=== PATIENT | female | born 1955 | race Caucasian/White ===

== ENCOUNTER 2021-10-19 09:50 | Emergency (ER) | payer OTHER, SELFPAY ==
--- NOTE | ~2021-10-19 | XR_ITS ---
EXAMINATION: XR chest 2V DATE: 10/19/2021 10:06 INDICATION: Cough and shortness of breath TECHNIQUE: Frontal and lateral views of the chest are obtained COMPARISON: None available FINDINGS: The lungs are free of acute opacities. There is no pleural effusion or pneumothorax. The ca rdiomediastinal silhouette is normal. There is mild thoracic spondylosis. IMPRESSION: 1. No acute cardiopulmonary abnormality. Reviewed, dictated and finalized at location B.
[2021-10-19 09:59] VITALS: BP 158/69; PULSE 90; RESP 18; TEMP 36.1; O2SAT 97
--- NOTE | 2021-10-19 10:15 | ED.GENADULT ---
HPI - General Adult General Chief complaint: Unspecified Stated complaint: COPD Time Seen by Provider: 10/19/21 10:15 Source: patient Mode of arrival: ambulatory Limitations: no limitations History of Present Illness HPI narrative: Mckenna Arellano is a 66 yo female with a PMH of HTN, COPD, who [facility] with increased coughing and difficulty sleeping because of the coughing she states that she has been using her albuterol on inhaler regularly and taking her blood pressure medication she sees her doctor every 6 months for her COPD Related Data Allergies Allergy/AdvReac Type Severity Reaction Status Date / Time Sulfa (Sulfonamide Allergy Unknown unknown Verified 06/27/21 15:27 Antibiotics) levofloxacin Allergy NAUSEA/VOMI Verified 06/27/21 15:27 TING Review of Systems Review of Systems: CONSTITUTIONAL: Denies fever, chills, sweats. EYES: Denies visual changes, redness, discharge. ENT: Denies rhinorrhea, has congestion, sore throat, otalgia. CARDIOVASCULAR: Denies chest pain, palpitations, edema. RESPIRATORY: Denies dyspnea, has wheezing, has cough GASTROINTESTINAL: Denies abdominal pain, nausea, vomiting, diarrhea. GENITOURINARY: Denies dysuria, hematuria, abnormal discharge SKIN: Denies rash or itching. NEUROLOGIC: Denies numbness, or focal weakness. PSYCHIATRIC: Denies anxiety or depression. PMFSH Past Medical History Medical History COPD (chronic obstructive pulmonary disease) Facial contusion Hypertension Nasal bone fracture Vitamin D deficiency disease Family History Family History Father Family history of lung cancer, Onset Age: 69 Social History Social History Smoking status: Current every day smoker Comments At time of signature, I agree with nursing past medical, surgical, social and family history. There is no relevant family history pertinent to the presenting complaint. Exam Narrative: GENERAL: This is a well-nourished, well-developed patient, in mild distress. HEAD: normocephalic, atraumatic. EYES: Sclera clear/white. Vision is grossly intact. EARS: External ears normal. Hearing grossly intact. NOSE: External nose normal without nasal discharge, nares without redness, mild rhinorrhea. THROAT: Mucous membranes moist, posterior pharynx mild erythema with clear drainage patient's oral mucosa reflects smoking active NECK: Neck supple, non-tender CARDIOVASCULAR: Regular rate and rhythm without murmurs, gallops, or rubs. RESPIRATORY: Diminished to auscultation. Breath sounds equal bilaterally. Lower bibasilar wheezes, rales, or rhonchi. GASTROINTESTINAL: Abdomen soft, SKIN: warm, intact with no suspicious lesions or rash, good texture and turgor. NEURO: awake, alert, and oriented to person, place and time. There were no obvious focal neurologic abnormalities. Steady gait EXTREMITIES: Normal range of motion. BACK: Nontender without deformity Course Course Emergency Course: Patient comes to [facility] with complaints of increased coughing and difficulty sleeping because of the cough due to her COPD X-ray is negative no acute cardiopulmonary process Started on prednisone 50 mg x 5 days, Tessalon Perles, refill on albuterol nebulizer solution Discussed trying to stop smoking and to continue using Claritin for nasal congestion Level of Care: [facility] Vital Signs Vital signs: Vital Signs Temperature 97.0 F L 10/19/21 09:59 Pulse Rate 90 10/19/21 09:59 Respiratory Rate 18 10/19/21 09:59 Blood Pressure 158/69 H 10/19/21 09:59 Pulse Oximetry 97 10/19/21 09:59 Temperature 97.0 F L 10/19/21 09:59 Pulse Rate 90 10/19/21 09:59 Respiratory Rate 18 10/19/21 09:59 Blood Pressure 158/69 H 10/19/21 09:59 Pulse Oximetry 97 10/19/21 09:59 Medical Decision Making Diffe
== END 2021-10-19 10:36 | disposition home or self-care (01) ==
PROVIDERS: Emergency Provider Nurse Practitioner; PCP Emergency Medicine
DX: J44.1 Chronic obstructive pulmonary disease with (acute) exacerbation (principal); I10 Essential (primary) hypertension; F17.200 Nicotine dependence, unspecified, uncomplicated
CPT/HCPCS: 71046; 99213; G0463

== ENCOUNTER 2023-05-26 11:34 | Emergency (ER) | payer OTHER, MEDICARE, SELFPAY ==
[2023-05-26 11:51] VITALS: BP 119/71; PULSE 106; RESP 18; TEMP 38.6; O2SAT 94
--- NOTE | 2023-05-26 11:57 | ED.URI ---
HPI - URI/Sore Throat General Chief Complaint: Upper Respiratory Infection Stated Complaint: fever,cough,chills Source: patient and RN notes reviewed Mode of arrival: ambulatory Limitations: no limitations History of Present Illness HPI Narrative: 67-year-old female presents with concern for 3 day history of cough, fevers, headache. She reports shortness of breath with coughing. Reports she has COPD and she last used her albuterol inhaler this morning. She reports she was around an ill co-worker MD elicited complaint: fever and cough Related Data Allergies Allergy/AdvReac Type Severity Reaction Status Date / Time Sulfa (Sulfonamide Allergy Unknown unknown Verified 05/26/23 12:01 Antibiotics) levofloxacin Allergy NAUSEA/VOMI Verified 05/26/23 12:01 TING Review of Systems Review of Systems: CONSTITUTIONAL: Reports malaise, chills, sweats, fever. EYES: Denies visual changes, redness, or discharge. ENT: Reports rhinorrhea, congestion. Denies sinus pain, otalgia and sore throat. CARDIOVASCULAR: Denies chest pain, palpitations, or edema. RESPIRATORY: Reports cough, dyspnea. GASTROINTESTINAL: Denies abdominal pain, nausea, vomiting, diarrhea SKIN: Denies rash or itching. MUSCULOSKELETAL: Reports myalgia. NEUROLOGIC: Reports headache. All systems reviewed & are unremarkable except as noted in HPI and below PMFSH Past Medical History Medical History COPD (chronic obstructive pulmonary disease) Facial contusion Hypertension Nasal bone fracture Vitamin D deficiency disease Family History Family History Father Family history of lung cancer, Onset Age: 69 Social History Social History (Updated 12/25/22 @ 15:19 by Jacklyn Suarez MA) Smoking status: Current every day smoker Alcohol intake: current Alcohol use details: wine or beer Lack of Transportation: No Lack of Food: Never True Current Housing: I Have Housing Concerned About Future Housing: No Difficulty Paying Gas/Electric Bills: No Difficulty Paying for Meds: No Currently Unemployed: No Education: Trade/Vocational Certificate Difficulty w/ Childcare or Family Care: No Comments At time of signature, agree with nursing past medical, surgical, social and family history. There is no relevant family history pertinent to the presenting complaint Exam Narrative: GENERAL: Nontoxic-appearing, well-nourished, and in no acute distress. HEAD: Normocephalic EYES: PERRLA, conjunctivae clear ENT: Nares clear. Mucous membranes moist. TM pearly pratt with dull light reflex bilaterally; no tragal tenderness. NECK: Supple. No lymphadenopathy CHEST: Clear to auscultation, breath sounds equal. No wheezing, rhonchi, rales, or stridor. No respiratory distress, speaks in full sentences. Cough noted HEART: Regular rate and rhythm. No murmur heard. SKIN: Warm, dry, no rash. NEURO: Alert and oriented x3. PSYCH: Normal mood and affect Course Course Emergency Course: Patient is aware of diagnosis, understands and agrees to treatment plan. Anticipatory guidance given. Patient agrees to follow-up as directed and is aware of reasons to seek care at the emergency department. Portions of this record may have been created with voice recognition software Level of Care: [facility] Visit Vital Signs Vital signs: Vital Signs Temperature 101.4 F H 05/26/23 11:51 Pulse Rate 106 H 05/26/23 11:51 Respiratory Rate 18 05/26/23 11:51 Blood Pressure 119/71 05/26/23 11:51 Pulse Oximetry 94 05/26/23 11:51 Oxygen Delivery Room Air 05/26/23 11:51 Temperature 101.4 F H 05/26/23 11:51 Pulse Rate 106 H 05/26/23 11:51 Respiratory Rate 18 05/26/23 11:51 Blood Pressure 119/71 05/26/23 11:51 Pulse Oximetry 94 05/26/23 11:51 Oxygen Delivery Room Air 05/26/23 11:51 Reviewed. MDM - UR
== END 2023-05-26 12:50 | disposition home or self-care (01) ==
PROVIDERS: Emergency Provider Nurse Practitioner; PCP Emergency Medicine
DX: J10.1 Influenza due to other identified influenza virus with other respiratory manifestations (principal); Z20.822 Contact with and (suspected) exposure to COVID-19; F17.200 Nicotine dependence, unspecified, uncomplicated; J44.9 Chronic obstructive pulmonary disease, unspecified; I10 Essential (primary) hypertension
CPT/HCPCS: 87426; 87804; 99213; C9803; G0463

== ENCOUNTER 2023-06-04 14:20 | Emergency (ER) | payer OTHER, MEDICARE, SELFPAY ==
[2023-06-04 14:34] VITALS: BP 116/57; PULSE 102; RESP 16; TEMP 37.6; O2SAT 94
--- NOTE | 2023-06-04 14:54 | ED.URI ---
HPI - URI/Sore Throat General Chief Complaint: Upper Respiratory Infection Stated Complaint: cough Time Seen by Provider: 06/04/23 14:40 Source: patient Mode of arrival: ambulatory Limitations: no limitations History of Present Illness HPI Narrative: Mckenna is a 67-year-old female patient presenting to the clinic today with complaints of cough, sinus pressure, headache, and overall not feeling well. She was diagnosed with influenza a on the . She reports that she was initially feeling better for a few days but got sick again. Denies any known fever or chills. Has history of COPD. Reports a productive cough with yellow phlegm. Thinks she may have a sinus infection. Denies any increase in shortness of breath. MD elicited complaint: cough, rhinorrhea, nasal congestion and sinus pain Related Data Allergies Allergy/AdvReac Type Severity Reaction Status Date / Time Sulfa (Sulfonamide Allergy Unknown unknown Verified 05/26/23 12:01 Antibiotics) levofloxacin Allergy NAUSEA/VOMI Verified 05/26/23 12:01 TING Review of Systems Review of Systems: Pertinent positives per HPI. Patient denies any fever, chills, rash, visual changes, dizziness, shortness of breath, chest pain, palpitations, nausea, vomiting, diarrhea, constipation, abdominal pain, or any urinary issues. [facility] Past Medical History Medical History COPD (chronic obstructive pulmonary disease) Facial contusion Hypertension Nasal bone fracture Vitamin D deficiency disease Family History Family History Father Family history of lung cancer, Onset Age: 69 Social History Social History (Updated 12/25/22 @ 15:19 by Jacklyn Suarez MA) Smoking status: Current every day smoker Alcohol intake: current Alcohol use details: wine or beer Lack of Transportation: No Lack of Food: Never True Current Housing: I Have Housing Concerned About Future Housing: No Difficulty Paying Gas/Electric Bills: No Difficulty Paying for Meds: No Currently Unemployed: No Education: Trade/Vocational Certificate Difficulty w/ Childcare or Family Care: No Comments At the time of my signature, I reviewed and agree with the nursing past medical, surgical, social, and family history. There is no relevant family history pertinent to the patient complaint. Exam Narrative: General: Well-developed, well nourished, in no apparent distress Head: Normocephalic, atraumatic Eyes: Pupils equally round and reactive to light bilaterally, EOM intact, sclera and conjunctive clear, no discharge, lids normal Ears: TMs intact and congested, ear canals clear, no drainage, grossly hearing normal. Nose: Nares patent, yellow nasal discharge, monitor inflammation, maxillary and frontal sinus tenderness. Mouth: Oral pharynx without lesions or masses, good dentition, MMM. Postnasal drip Neck: Supple, trachea midline, no enlargement of anterior or posterior cervical nodes, no thyroid masses or goiter palpable. Cardio: Regular rate and rhythm, s1 and s2 normal, no murmur appreciated. Resp: Clear to auscultation bilaterally, no rhonchi, rales, wheezing or rubs Course Course Emergency Course: Portions of this record may have been created with voice recognition software. Level of Care: [facility] Visit Vital Signs Vital signs: Vital Signs Temperature 37.6 C 06/04/23 14:34 Pulse Rate 102 H 06/04/23 14:34 Respiratory Rate 16 06/04/23 14:34 Blood Pressure 116/57 L 06/04/23 14:34 Pulse Oximetry 94 06/04/23 14:34 Oxygen Delivery Room Air 06/04/23 14:34 Temperature 37.6 C 06/04/23 14:34 Pulse Rate 102 H 06/04/23 14:34 Respiratory Rate 16 06/04/23 14:34 Blood Pressure 116/57 L 06/04/23 14:34 Pulse Oximetry 94 06/04/23 14:34 Oxygen Delivery Room Air 06/04/23 14:34 Vital signs reviewed MDM - URI
== END 2023-06-04 15:03 | disposition home or self-care (01) ==
PROVIDERS: Emergency Provider Nurse Practitioner Family; PCP Emergency Medicine
DX: J01.90 Acute sinusitis, unspecified (principal); F17.200 Nicotine dependence, unspecified, uncomplicated; J44.9 Chronic obstructive pulmonary disease, unspecified; I10 Essential (primary) hypertension
CPT/HCPCS: 99213; G0463

== ENCOUNTER 2024-03-02 09:44 | Emergency (ER) | payer OTHER, MEDICARE, SELFPAY ==
--- NOTE | ~2024-03-02 | XR_ITS ---
EXAMINATION: XR orbits min 4V DATE: 03/02/2024 10:39 INDICATION: Right orbital tenderness. Fall. TECHNIQUE: 4 views of the orbits were obtained. COMPARISON: None. FINDINGS: There is leftward deviation of the nasal septum. No fracture. IMPRESSION: 1. No fracture. Reviewed, dictated and finalized at location A. IMPRESSION: 1. No fracture.
--- NOTE | ~2024-03-02 | XR_ITS ---
EXAMINATION: XR shoulder RT min 2V DATE: 03/02/2024 10:39 INDICATION: Anterior right shoulder pain. Fall. TECHNIQUE: 2 views of right shoulder were obtained. COMPARISON: None. FINDINGS: Alignment is normal. No fracture. Joint spaces are normal. IMPRESSION: 1. Normal right shoulder. Reviewed, dictated and finalized at location A. IMPRESSION: 1. Normal right shoulder.
[2024-03-02 09:56] VITALS: BP 185/67; PULSE 79; RESP 16; TEMP 36; O2SAT 97
--- NOTE | 2024-03-02 10:04 | ED.FALL ---
HPI - Fall General Chief Complaint: Fall Stated Complaint: FALL Time Seen by Provider: 03/02/24 10:05 Source: patient Mode of arrival: ambulatory Limitations: no limitations History of Present Illness HPI Narrative: Mckenna is a 68-year-old female patient presenting to the clinic today with complaints of a ground level fall. She reports on Friday she was walking and her sisters living room and her leg got caught on the recliner and this caused her to fall. She hit the right forehead just above her eye and injured her right shoulder. She is reporting right anterior shoulder pain. Pain with movement-thinks she may have injured her rotator cuff. Has bruising and swelling to the right orbit. Denies any visual changes, eye pain, or issues with moving her eye. Related Data Home Medications Medication Instructions Recorded Confirmed budesonide 160 mcg-glycopyr 9 See Rx Instructions .Route .COMPLEX 03/02/24 03/02/24 mcg-formot 4.8 mcg/actuation HFA inhaler (Breztri Aerosphere) Allergies Allergy/AdvReac Type Severity Reaction Status Date / Time levofloxacin Allergy Intermediate NAUSEA/VOMI Verified 03/02/24 09:52 TING Sulfa (Sulfonamide Allergy Unknown unknown Verified 03/02/24 09:52 Antibiotics) Review of Systems Review of Systems: Pertinent positives per HPI. Patient denies any fever, chills, rash, headache, visual changes, dizziness, cough, runny nose, sore throat, shortness of breath, chest pain, palpitations, nausea, vomiting, diarrhea, constipation, abdominal pain, or any urinary issues. [facility] Past Medical History Medical History Acute non-recurrent frontal sinusitis Acute non-recurrent maxillary sinusitis Colonoscopy refused COPD (chronic obstructive pulmonary disease) Dyspnea Facial contusion Fatigue HTN (hypertension), benign Hypertension Labyrinthitis of both ears Nasal bone fracture URI with cough and congestion Vitamin D deficiency disease Wheezing Family History Family History Father Family history of lung cancer, Onset Age: 69 Social History Social History Smoking status: Current every day smoker Alcohol intake: current Alcohol use details: wine or beer Lack of Transportation: No Lack of Food: Never True Current Housing: I Have Housing Concerned About Future Housing: No Difficulty Paying Gas/Electric Bills: No Difficulty Paying for Meds: No Currently Unemployed: No Education: Trade/Vocational Certificate Difficulty w/ Childcare or Family Care: No Comments At the time of my signature, I reviewed and agree with the nursing past medical, surgical, social, and family history. There is no relevant family history pertinent to the patient complaint. Exam Narrative: General: Well-developed, well nourished, in no apparent distress Head: Normocephalic, atraumatic Eyes: Pupils equally round and reactive to light bilaterally, EOM intact, sclera and conjunctive clear, no discharge, bruising over the right orbit with mild lid edema-tenderness to palpation over the right lateral eyebrow, no vision changes Ears: TMs intact and clear, ear canals clear, no drainage, grossly hearing normal. Nose: Nares patent, no discharge, no inflammation, no sinus tenderness. Mouth: Oropharynx without lesions or masses, good dentition, MMM. Neck: Supple, trachea midline, no enlargement of anterior or posterior cervical nodes, no thyroid masses or goiter palpable. Cardio: Regular rate and rhythm, s1 and s2 normal, no murmur appreciated. Resp: Clear to auscultation bilaterally anteriorly and posteriorly, no rhonchi, rales, wheezing or rubs Musculoskeletal: No deformity, tender to palpation over the anterior and lateral shoulder, empty can and full can testing performed-cause pain but no weakness, neg
[2024-03-02 11:19] VITALS: BP 158/78
== END 2024-03-02 11:19 | disposition home or self-care (01) ==
PROVIDERS: Emergency Provider Nurse Practitioner Family; PCP Emergency Medicine
DX: S46.011A Strain of muscle(s) and tendon(s) of the rotator cuff of right shoulder, initial encounter (principal); S05.11XA Contusion of eyeball and orbital tissues, right eye, initial encounter; W18.09XA Striking against other object with subsequent fall, initial encounter; J44.9 Chronic obstructive pulmonary disease, unspecified; I10 Essential (primary) hypertension; F17.200 Nicotine dependence, unspecified, uncomplicated
CPT/HCPCS: 70200; 73030; 99214; A4565; G0463

== ENCOUNTER 2024-12-07 08:12 | Emergency (ER) | payer MEDICARE, BC, SELFPAY ==
--- NOTE | ~2024-12-07 | XR_ITS ---
EXAMINATION: [id number] DATE: 12/07/2024 08:48 INDICATION: Right back and rib pain TECHNIQUE: A frontal inspiratory view of the chest and 3 views of the right ribs were obtained. COMPARISON: None FINDINGS: No rib fractures identified. Lungs are clear with no focal airspace opacities, pulmonary edema, pleur al effusion or pneumothorax. Mild lumbar dextrocurvature. IMPRESSION: 1. No rib fracture or acute cardiopulmonary disease. Reviewed, dictated and finalized at location A.
[2024-12-07 08:22] VITALS: BP 151/75; PULSE 71; RESP 20; TEMP 36.4; O2SAT 99
--- NOTE | 2024-12-07 08:54 | ED.BACK ---
HPI - Back Pain/Injury General Chief Complaint: Back Pain/Injury Stated Complaint: Pain Right Side Chest Time Seen by Provider: 12/07/24 08:15 Source: patient Mode of arrival: ambulatory Limitations: no limitations History of Present Illness HPI Narrative: Patient is a 69-year-old female who presents with right back pain around shoulder blade. Patient has been lifting her 27 lb grandson that she does not normally do. Patient is also had right rotator cuff injury roughly 6-8 months ago. Denies any radiation of pain, reports it is a constant ache the keep her up at night. Denies any numbness, tingling or weakness to extremities. Related Data Allergies Allergy/AdvReac Type Severity Reaction Status Date / Time levofloxacin Allergy Intermediate NAUSEA/VOMI Verified 12/07/24 08:24 TING Sulfa (Sulfonamide Allergy Unknown unknown Verified 12/07/24 08:24 Antibiotics) Review of Systems Review of Systems: All systems reviewed & are unremarkable except as noted in HPI and below Constitutional: Constitutional: Denies body ache(s), Denies chills, Denies fatigue, Denies fever(s), Denies headache(s), Denies malaise and Denies weakness Eyes: Eyes: Denies blurry vision, Denies irritation and Denies loss of vision ENT: Denies otalgia, Denies headache(s), Denies nasal discharge, Denies sinus pain and Denies sore throat Cardiovascular: Cardiovascular: Denies chest pain, Denies irregular heart rhythm and Denies dyspnea Respiratory: Respiratory: Denies dyspnea Gastrointestinal: Gastrointestinal: Denies abdominal pain, Denies melena, Denies hematochezia, Denies diarrhea, Denies nausea and Denies vomiting Musculoskeletal: Musculoskeletal: Reports back pain, Denies myalgias and Denies arthralgias Integumentary/Breasts: Skin/Breast: Denies pruritus and Denies rash Neurologic: Denies headache(s), Denies loss of vision and Denies weakness Psychiatric: Psychiatric: Reports no additional psychiatric complaints Endocrine: Endocrine: Denies fatigue PMFSH Past Medical History Medical History Right facial numbness Diplopia Flank pain Dysuria UTI (urinary tract infection) URI (upper respiratory infection) Fatigue Dyspnea Wheezing URI with cough and congestion Labyrinthitis of both ears HTN (hypertension), benign Colonoscopy refused Acute non-recurrent maxillary sinusitis Acute non-recurrent frontal sinusitis Hypertension Nasal bone fracture Facial contusion Vitamin D deficiency disease COPD (chronic obstructive pulmonary disease) Family History Family History Father Family history of lung cancer, Onset Age: 69 Social History Social History Smoking status: Current every day smoker Tobacco type: e-cigarettes/vaping Alcohol intake: current Alcohol use details: wine or beer Substance use: never Substance use type: does not use Do You Feel Safe in your Home?: Yes Lack of Transportation: No Lack of Food: Never True Current Housing: I Have Housing Concerned About Future Housing: No Difficulty Paying Gas/Electric Bills: No Difficulty Paying for Meds: No Currently Unemployed: No Education: Trade/Vocational Certificate Difficulty w/ Childcare or Family Care: No Comments At time of signature, agree with nursing past medical, surgical, social and family history. There is no relevant family history pertinent to the presenting complaint. Exam Const: General: cooperative, healthy appearing, comfortable, no acute distress and well nourished Nutritional Appearance: well nourished Orientation/consciousness: patient oriented x3 Limitations: no limitations HENMT: Head: normal to inspection, normocephalic and atraumatic Ears: hearing grossly normal bilaterally and external ears normal Face/Nose/Sinus: Normal external nose present, normal facial exam and face symmetric Face and sinus: normal facial exam and face symmetric Mouth: Yes lip normal Eyes: General: appearance normal, both eyes and all related structures Alignment and Position: alignment normal and position normal Periorbital: periorbital findings normal Eyelids: eyelids normal Pupils: Equal, round and reactive pupils present EOM: EOMs intact bilaterally Neck: Neck: normal visual inspection, full ROM and supple Chest: Chest palpation & inspection: normal inspection of the chest Resp: Effort & Inspection: normal respiratory effort and able to speak in complete sentences Auscultation: clear to auscultation bilaterally Cardio: Rate: regular rate Rhythm: regular rhythm Heart sounds: S1 normal heart sound present and S2 normal heart sound present GI: Inspection: normal to inspection Back/Spine/Pelvis: Cervical Spine: normal cervical lordosis, cervical ROM normal and No Cervical spine tenderness Thoracic/Lumbar Spine: thoracic and lumbar spine normal to inspection, thoraco-lumbar ROM normal, paraspinal muscle tenderness on the right in the upper thoracic and in the mid thoracic, No thoracic spinal tenderness and No lumbar spinal tenderness Skin: General skin exam: normal color and no rashes or lesions noted Neuro: General: patient oriented x3 and moves all extremities Cranial nerves: Yes Equal, round and reactive pupils present Speech: normal speech Gait exam (Neuro): Normal gait present Extrem: General: normal to inspection, full ROM and no edema Psych: Appearance: grossly normal and well kempt Mental Status: mental status grossly normal Speech and movement: Normal speech and movement present Affect: normal affect Attitude: cooperative Thought process: Normal thought process present Course Course Emergency Course: Patient is aware of diagnosis, understands and agrees to treatment plan. Anticipatory guidance given. Patient agrees to follow-up as directed and is aware of reasons to seek care at the emergency department. Portions of this record may have been created with voice recognition software Level of Care: Express Care Visit Vital Signs Vital signs: Vital Signs Temperature 36.4 C L 12/07/24 08:22 Pulse Rate 71 12/07/24 08:22 Respiratory Rate 20 12/07/24 08:22 Blood Pressure 151/75 H 12/07/24 08:22 Pulse Oximetry 99 12/07/24 08:22 Oxygen Delivery Room Air 12/07/24 08:22 Temperature 36.4 C L 12/07/24 08:22 Pulse Rate 71 12/07/24 08:22 Respiratory Rate 20 12/07/24 08:22 Blood Pressure 151/75 H 12/07/24 08:22 Pulse Oximetry 99 12/07/24 08:22 Oxygen Delivery Room Air 12/07/24 08:22 Reviewed MDM - Back Pain/Injury MDM Narrative Medical decision making narrative: Pt well hydrated appearing, in no respiratory distress, hemodynamically stable. Recommend supportive care. The patient is stable at time of discharge the clinical impression was discussed and the patient was given the opportunity to ask questions, which were addressed as completely as possible given the information available at present. Anticipatory guidance and return to care precautions were discussed and the importance of primary care follow-up was stressed and encouraged. The patient voiced understanding of the plan, indications to return, and the need for follow-up. Exam findings show no acute concerns or changes Patient is appropriate for outpatient treatment and follow-up. Differential Diagnosis Differential diagnosis: Likely thoracic back pain, AAA (Less likely) and other (Thoracic muscle strain, rotator cuff injury, rib fracture) Medical Records Attestation: I reviewed the patient's medical records. Imaging Data Radiologist's impression: EXAMINATION: [id number] DATE: 12/07/2024 08:48 INDICATION: Right back and rib pain TECHNIQUE: A frontal inspiratory view of the chest and 3 views of the right ribs were obtained. COMPARISON: None FINDINGS: No rib fractures identified. Lungs are clear with no focal airspace opacities, pulmonary edema, pleural effusion or pneumothorax. Mild lumbar dextrocurvature. IMPRESSION: 1. No rib fracture or acute cardiopulmonary disease. Discharge Plan Discharge Clinical Impression: Chest wall muscle strain Qualifiers: Encounter type: initial encounter Qualified Code(s): S29.011A - Strain of muscle and tendon of front wall of thorax, initial encounter Patient Disposition: Home Condition: Stable Instructions: Muscle Strain (ED) Additional Instructions: Take steroids in the morning with food, take muscle relaxers every 8 hours as needed for muscle spasm. do not drive or make any important decisions while on this medication for it can make you drowsy. Lidocaine patches on for 12 hours off for 12 hours Exercise:Combine aerobic exercise, like walking or swimming, with specific exercises to keep the muscles in your back and abdomen strong and flexible.bed rest is not recommended. Proper Lifting:Be sure to lift heavy items with your legs, not your back. Do not bend over to pick something up. Keep your back straight and bend at your knees. Weight:Maintain a healthy weight. Being overweight puts added stress on your lower back. Avoid Smoking:Both the smoke and the nicotine cause your spine to age faster than normal. Proper Posture:Good posture is important for avoiding future problems. A therapist can teach you how to safely stand, sit, and lift. Use warm moist heat or ice to help with pain. Follow up with Primary provider in 2-3 days, This may become a chronic condition and they will be the one to help manage your pain and order additional testing. Follow-up with your doctor for further care and evaluation or seek ER if you develop problems with bladder/bowel function, weakness or loss of feeling in one or both of your legs. Patient Language: Ukrainian Prescriptions: New prednisone 20 mg tablet See Rx Instructions .ROUTE .COMPLEX Qty: 9 0RF Rx Instructions: 40 mg daily x3 days, 20 mg daily x3 days baclofen 10 mg tablet 10 mg PO BID Qty: 10 0RF lidocaine 5 % adhesive patch,medicated 1 patch topical DAILY Qty: 15 0RF Rx Instructions: leave on most painful area for up to 12 hrs No Action albuterol sulfate [ProAir HFA] 90 mcg/actuation HFA aerosol inhaler 1 inh INHALATION Q4-6H PRN (Reason: shortness of breath or wheezing) Qty: 25.5 3RF losartan 25 mg tablet 25 mg PO DAILY Qty: 90 2RF Breztri Aerosphere 160-9-4.8 mcg/actuation HFA aerosol inhaler See Rx Instructions .ROUTE .COMPLEX Qty: 10.7 3RF Dose Instruction: INHALE 2 PUFFS BY MOUTH TWICE A DAY Rx Instructions: INHALE 2 PUFFS BY MOUTH TWICE A DAY Follow-up/Referrals: Eddi Yi MD [Primary Care Provider] - 3 Days Stand Alone Forms: Work/School Release IP Time of Disposition: 09:13
== END 2024-12-07 09:20 | disposition home or self-care (01) ==
PROVIDERS: Emergency Provider Nurse Practitioner Family; PCP Emergency Medicine
DX: S29.011A Strain of muscle and tendon of front wall of thorax, initial encounter (principal); S21.201A Unspecified open wound of right back wall of thorax without penetration into thoracic cavity, initial encounter; X50.3XXA Overexertion from repetitive movements, initial encounter; I10 Essential (primary) hypertension; J44.9 Chronic obstructive pulmonary disease, unspecified
CPT/HCPCS: 71101; 99213; G0463